=== PATIENT | female | born 1990 | race Caucasian/White ===

== ENCOUNTER 2020-04-12 11:09 | Observation (INO) | payer OTHER ==
[~2020-04-12] VITALS: Ht 157.5 cm; Wt 108.0 kg
[2020-04-12 11:57] VITALS: BP 115/56
[2020-04-12] MEDS ORDERED: BETAMETH ACET/BETAMETH NA PH 30 MG/5 ML VIAL IM SCH (12:15)
[2020-04-12] MEDS ORDERED: PNV91TAB8 PO (12:28)
== END 2020-04-12 12:38 | disposition home or self-care (01) ==
LOC: MLD 11:09
PROVIDERS: ADMIT Obstetrics & Gynecology; ATTEND Obstetrics & Gynecology
DX: O23.43 Unspecified infection of urinary tract in pregnancy, third trimester (principal); O99.113 Other diseases of the blood and blood-forming organs and certain disorders involving the immune mechanism complicating pregnancy, third trimester; D69.6 Thrombocytopenia, unspecified; Z86.19 Personal history of other infectious and parasitic diseases; Z87.59 Personal history of other complications of pregnancy, childbirth and the puerperium; Z3A.36 36 weeks gestation of pregnancy
CPT/HCPCS: 59025; 81000; 96372; G0378; J0702

== ENCOUNTER 2020-04-13 11:44 | Observation (INO) | payer OTHER ==
[~2020-04-13] VITALS: Ht 157.5 cm; Wt 62.6 kg
[~2020-04-13 11:44] MED LIST: PNV91TAB8 PO
[2020-04-13 12:04] VITALS: BP 108/61
[2020-04-13] MEDS ORDERED: BETAMETH ACET/BETAMETH NA PH 30 MG/5 ML VIAL IM SCH (12:09)
== END 2020-04-13 12:56 | disposition home or self-care (01) ==
LOC: MLD 11:44
PROVIDERS: ADMIT Obstetrics & Gynecology; ATTEND Obstetrics & Gynecology
DX: O26.893 Other specified pregnancy related conditions, third trimester (principal); R10.9 Unspecified abdominal pain; Z3A.36 36 weeks gestation of pregnancy
CPT/HCPCS: 59025; 96372; G0378; J0702

== ENCOUNTER 2020-04-15 12:14 | Observation (INO) | payer OTHER ==
[~2020-04-15] VITALS: Ht 157.5 cm; Wt 108.0 kg
[2020-04-15] MEDS ORDERED: PNV91TAB10 PO (13:01)
[2020-04-15 13:35] LABS: BASOPHILS % (AUTO) 0.2 % (0.0-2.0); EOSINOPHILS % (AUTO) 0.1 % (0.0-4.0); HEMATOCRIT 36.3 % (36-48); HEMOGLOBIN 12.4 g/dL (12.0-16.0); LYMPHOCYTES # (AUTO) 1.7 K/uL (2.5-16.5); MEAN CORPUSCULAR HEMOGLOBIN 32 pg (27-31); MEAN CORPUSCULAR HGB CONC 34 g/dL (33-37); MEAN CORPUSCULAR VOLUME 94.2 fL (80-94); MONOCYTES # (AUTO) 1.1 K/uL (0.8-1.0); MONOCYTES % (AUTO) 12.3 % (1.7-9.3); NEUTROPHILS # (AUTO) 6.2 K/uL (1.8-7.7); NEUTROPHILS % (AUTO) 68.4 % (42.2-75.2); PLATELET COUNT (AUTO) 137 K/uL (140-450); RED BLOOD CELL COUNT(AUTO) 3.86 MIL/uL (4.20-5.40); RED CELL DISTRIBUTION WIDTH 13.6 % (11.6-13.7); WHITE BLOOD COUNT (AUTO) 9.1 K/uL (4.8-10.8)
== END 2020-04-15 14:45 | disposition home or self-care (01) ==
LOC: MLD 12:14
PROVIDERS: ADMIT Obstetrics & Gynecology; ATTEND Obstetrics & Gynecology
DX: Z34.93 Encounter for supervision of normal pregnancy, unspecified, third trimester (principal); Z3A.36 36 weeks gestation of pregnancy
CPT/HCPCS: 36415; 59025; 76819; 81000; 85025; G0378

== ENCOUNTER 2020-04-19 10:09 | Observation (INO) | payer OTHER, SELFPAY ==
[~2020-04-19 10:09] MED LIST changes: +PNV91TAB10 PO
[2020-04-19 11:22] VITALS: BP 109/55
== END 2020-04-19 13:15 | disposition home or self-care (01) ==
LOC: MLD 10:09
PROVIDERS: ADMIT Obstetrics & Gynecology; ATTEND Obstetrics & Gynecology
DX: O26.893 Other specified pregnancy related conditions, third trimester (principal); Z20.828 Contact with and (suspected) exposure to other viral communicable diseases; R10.9 Unspecified abdominal pain; R51.9 Headache, unspecified; Z3A.37 37 weeks gestation of pregnancy
CPT/HCPCS: 59025; 76819; 81000; 87426; G0378; U0003

== ENCOUNTER 2020-04-22 10:18 | Inpatient (IN) | payer OTHER, SELFPAY ==
[~2020-04-22] VITALS: Ht 157.5 cm; Wt 108.9 kg
[~2020-04-22 10:18] MED LIST changes: -PNV91TAB10 PO
[2020-04-22] MEDS ORDERED: MORPHINE SULFATE 5 MG/ML VIAL IVP PRN (11:15)
[2020-04-22] MEDS: LACTATED RINGERS 1,000 ML IV SCH ×2 (11:15→19:30)
[2020-04-22] MEDS ORDERED: ONDANSETRON 4 MG/2 ML VIAL IVP PRN (11:15)
[2020-04-22 12:00] LABS: BASOPHILS % (AUTO) 0.4 % (0.0-2.0); EOSINOPHILS # (AUTO) 0.1 K/uL (0-0.4); EOSINOPHILS % (AUTO) 1.1 % (0.0-4.0); HEMATOCRIT 35.2 % (36-48); HEMOGLOBIN 12.1 g/dL (12.0-16.0); LYMPHOCYTES # (AUTO) 1.8 K/uL (2.5-16.5); LYMPHOCYTES % (AUTO) 21.7 % (20.5-51.1); MEAN CORPUSCULAR HEMOGLOBIN 32 pg (27-31); MEAN CORPUSCULAR HGB CONC 34 g/dL (33-37); MEAN CORPUSCULAR VOLUME 93.1 fL (80-94); MONOCYTES # (AUTO) 0.7 K/uL (0.8-1.0); MONOCYTES % (AUTO) 8.6 % (1.7-9.3); NEUTROPHILS # (AUTO) 5.7 K/uL (1.8-7.7); NEUTROPHILS % (AUTO) 68.2 % (42.2-75.2); PLATELET COUNT (AUTO) 98 K/uL (140-450); RED BLOOD CELL COUNT(AUTO) 3.78 MIL/uL (4.20-5.40); WHITE BLOOD COUNT (AUTO) 8.4 K/uL (4.8-10.8)
[2020-04-22 12:15] LABS: APPEARANCE,URINE SL CLOUDY (CLEAR); BILIRUBIN,URINE NEGATIVE (NEGATIVE); BLOOD, URINE NEGATIVE (NEGATIVE); COLOR,URINE YELLOW (YELLOW); LEUKOCYTE ESTERASE ,URINE TRACE (NEGATIVE); NITRITE, URINE NEGATIVE (NEGATIVE); UGLUCOSE NEGATIVE (NEGATIVE)
[2020-04-22 12:20] LABS: ALBUMIN 2.4 g/dL (3.4-5.0); ANION GAP 16.7 (8-16); CARBON DIOXIDE 20.2 mmol/L (21-32); CREATININE 0.7 mg/dL (0.6-1.3); POTASSIUM 3.9 mmol/L (3.5-5.1); TOTAL BILIRUBIN 0.3 mg/dL (0.0-1.0)
[2020-04-22 12:51] VITALS: BP 118/61
[2020-04-22] MEDS ORDERED: AMPICILLIN 2,000 MG VIAL ONE (13:01)
[2020-04-22 13:05] LABS: RBC,URINE 0-5 /HPF (0-5)
[2020-04-22] MEDS ORDERED: AMPICILLIN 2,000 MG in NACL 0.9% 100 ML IV SCH (13:30)
[2020-04-22] MEDS: MISOPROSTOL 25 MCG TAB VG SCH ×2 (14:52→21:03)
[2020-04-22] MEDS ORDERED: AMPICILLIN 1,000 MG in NACL 0.9% 50 ML IV SCH (16:00)
[2020-04-22] MEDS ORDERED: AMPICILLIN 1,000 MG VIAL ONE (18:00)
[2020-04-23] MEDS: MISOPROSTOL 25 MCG TAB VG SCH ×2 (03:37→09:38)
--- NOTE | 2020-04-23 09:58 | NUR ---
PATIENT HAS BEEN SCREENED AND CATEGORIZED LOW NUTRITION RISK. PATIENT WILL BE SEEN WITHIN 7 DAYS OF ADMISSION. 04/29/[address]
[2020-04-23] MEDS: LACTATED RINGERS 1,000 ML IV SCH ×2 (12:16→17:26)
[2020-04-23] MEDS ORDERED: OXYTOCIN 20 UNITS in LACTATED RINGERS 1,000 ML IV SCH (13:10)
[2020-04-23] MEDS ORDERED: OXYTOCIN 20 UNITS/LR PREMIX 1,000 ML IV ONE (13:26)
[2020-04-23] MEDS ORDERED: MORPHINE SULFATE 10 MG/ML VIAL ONE (18:10)
[2020-04-23 19:10] LABS: PROTHROMBIN TIME 9.2 secs (10.8-13.4)
[2020-04-23] MEDS ORDERED: fentaNYL citrate 0.05 MG/ML VIAL ONE (20:16)
[2020-04-23] MEDS ORDERED: ROPIVACAINE 0.2%/NS PREMIX 200 ML EPI ONE (20:16)
[2020-04-24] MEDS ORDERED: fentaNYL citrate 0.05 MG/ML VIAL ONE (02:56)
[2020-04-24] MEDS ORDERED: LIDOCAINE MPF 2% 100 MG/5 ML VIAL INJ ONE (03:02)
[2020-04-24] MEDS ORDERED: MEASLES, MUMPS, AND RUBELLA 1 VIAL SQVAC PRN (09:55)
[2020-04-24] MEDS ORDERED: IBUPROFEN 800 MG TAB PO PRN (09:55)
[2020-04-24] MEDS ORDERED: OXYTOCIN 10 UNITS/ML VIAL IM PRN (09:55)
[2020-04-24] MEDS ORDERED: METHYLERGONOVINE 0.2 MG TAB PO PRN (09:55)
[2020-04-24] MEDS ORDERED: BENZOCAINE/MENTHOL 20%-0.5% 60 GM CAN TP PRN (09:55)
[2020-04-24] MEDS ORDERED: METHYLERGONOVINE 0.2 MG/ML AMP IM PRN (09:55)
[2020-04-24 14:53] LABS: BASOPHILS % (AUTO) 0.2 % (0.0-2.0); EOSINOPHILS % (AUTO) 0.2 % (0.0-4.0); HEMATOCRIT 34.5 % (36-48); HEMOGLOBIN 11.6 g/dL (12.0-16.0); LYMPHOCYTES # (AUTO) 1.6 K/uL (2.5-16.5); LYMPHOCYTES % (AUTO) 12.2 % (20.5-51.1); MEAN CORPUSCULAR HEMOGLOBIN 32 pg (27-31); MEAN CORPUSCULAR HGB CONC 34 g/dL (33-37); MEAN CORPUSCULAR VOLUME 94.4 fL (80-94); MONOCYTES # (AUTO) 0.9 K/uL (0.8-1.0); NEUTROPHILS # (AUTO) 10.5 K/uL (1.8-7.7); NEUTROPHILS % (AUTO) 80.4 % (42.2-75.2); PLATELET COUNT (AUTO) 87 K/uL (140-450); RED BLOOD CELL COUNT(AUTO) 3.65 MIL/uL (4.20-5.40); RED CELL DISTRIBUTION WIDTH 14.1 % (11.6-13.7)
[2020-04-25 03:50] LABS: HEMATOCRIT 34.1 % (36-48); HEMOGLOBIN 11.6 g/dL (12.0-16.0)
== END 2020-04-26 11:35 | disposition home or self-care (01) | DRG 560 ==
LOC: MLD 10:18 → MFCC 22:47 → MLD 22:50 → MFCC 04-24 09:50
PROVIDERS: ADMIT Obstetrics & Gynecology; ATTEND Obstetrics & Gynecology
PROC: 10D07Z8 Extraction of Products of Conception, Other, Via Natural or Artificial Opening (ICD-10-PCS; principal; 2020-04-24)
DX: O99.02 Anemia complicating childbirth (principal); O99.12 Other diseases of the blood and blood-forming organs and certain disorders involving the immune mechanism complicating childbirth; O60.23X0 Term delivery with preterm labor, third trimester, not applicable or unspecified; Z37.0 Single live birth; Z3A.38 38 weeks gestation of pregnancy; D64.9 Anemia, unspecified; D69.6 Thrombocytopenia, unspecified; R71.0 Precipitous drop in hematocrit
CPT/HCPCS: 36415; 51702; 59200; 59409; 80053; 81001; 85018; 85025; 85610; 85730; 86592; 86886; 86900; 86901; 87086; 87653-90; J0290; J2001; J2270; J2405; J2590; J2795; J3010; J7120